=== PATIENT | female | born 1950 | race Hispanic/Latino ===

== ENCOUNTER 2021-04-23 14:18 | Inpatient (IN) | payer MEDICARE ==
[~2021-04-23] VITALS: Ht 152.4 cm; Wt 63.5 kg
[2021-04-23] MEDS ORDERED: SODIUM CHLORIDE 0.9% 1000ML 1,000 ML IV STA (14:54)
[2021-04-23 15:23] LABS: BASOPHILS # (AUTO) 0.1 (0.0-0.1); BASOPHILS % 0.6 % (0.0-1.0); EOSINOPHILS % 0.1 % (0.0-6.0); HEMATOCRIT 28.7 % (34.2-44.1); HEMOGLOBIN 9.5 g/dL (12.0-16.0); LYMPHOCYTES # (AUTO) 1.3 (1.0-3.2); LYMPHOCYTES % 14.7 % (18.0-39.1); MEAN CORPUSCULAR HEMOGLOBIN 28.5 pg (28-32); MEAN CORPUSCULAR HGB CONC 33.1 g/dL (31-35); MEAN CORPUSCULAR VOLUME 86.2 fL (81-99); MONOCYTES # (AUTO) 1.3 (0.2-0.8); MONOCYTES % 15.6 % (4.4-11.3); NEUTROPHILS # (AUTO) 5.8 (2.1-6.9); NEUTROPHILS % 68.1 % (38.7-80.0); PLATELET COUNT 468 x10e3/uL (140-360); RED BLOOD COUNT 3.33 x10e6/uL (3.6-5.1); RED CELL DISTRIBUTION WIDTH 11.9 % (11.7-14.4)
[2021-04-23 15:26] LABS: CLARITY,URINE SL CLOUDY (CLEAR); COLOR,URINE YELLOW (YELLOW)
[2021-04-23 15:27] LABS: KETONES,URINE NEGATIVE (NEGATIVE); LEUKOCYTE ESTERASE ,URINE NEGATIVE (NEGATIVE); NITRITE,URINE NEGATIVE (NEGATIVE); PROTEIN,URINE DIPSTICK >=300 (NEGATIVE); URINE UROBILINOGEN 0.2 mg/dL (0.2 - 1)
[2021-04-23 15:36] LABS: AMORPHOUS SEDIMENT,URINE MODERATE (FEW); BACTERIA,URINE FEW /HPF; EPITHELIAL CELLS,URINE MODERATE /LPF; RBC,URINE 0-5 /HPF (0-5)
[2021-04-23 15:43] LABS: ALBUMIN 3.4 g/dL (3.5-5.0); ALBUMIN/GLOBULIN RATIO 0.8 (0.8-2.0); ANION GAP 18.3 mmol/L (8-16); CALCIUM 8.4 mg/dL (8.4-10.2); CREATININE, SERUM 3.13 mg/dL (0.57-1.11); POTASSIUM 3.3 mmol/L (3.5-5.1)
[2021-04-23 15:50] LABS: CREATINE KINASE MB 0.4 ng/mL (0-5.0)
[2021-04-23] MEDS: SODIUM CHLORIDE 0.9% 1000ML 1,000 ML IV SCH (18:52)
[2021-04-23 23:04] LABS: CREATINE KINASE MB 0.7 ng/mL (0-5.0)
[2021-04-24 06:31] LABS: BASOPHILS % 0.4 % (0.0-1.0); EOSINOPHILS % 0.1 % (0.0-6.0); HEMATOCRIT 27.2 % (34.2-44.1); HEMOGLOBIN 9.2 g/dL (12.0-16.0); LYMPHOCYTES # (AUTO) 1.2 (1.0-3.2); LYMPHOCYTES % 12.8 % (18.0-39.1); MEAN CORPUSCULAR HEMOGLOBIN 28.9 pg (28-32); MEAN CORPUSCULAR HGB CONC 33.8 g/dL (31-35); MEAN CORPUSCULAR VOLUME 85.5 fL (81-99); MONOCYTES # (AUTO) 1.1 (0.2-0.8); MONOCYTES % 11.4 % (4.4-11.3); NEUTROPHILS # (AUTO) 6.9 (2.1-6.9); NEUTROPHILS % 74.8 % (38.7-80.0); PLATELET COUNT 421 x10e3/uL (140-360); RED BLOOD COUNT 3.18 x10e6/uL (3.6-5.1); RED CELL DISTRIBUTION WIDTH 11.7 % (11.7-14.4)
[2021-04-24] MEDS: ACETAMINOPHEN 325 MG TAB PO PRN ×2 (06:45→12:00)
[2021-04-24] MEDS: SODIUM CHLORIDE 0.9% 1000ML 1,000 ML IV SCH ×3 (06:45→17:35)
[2021-04-24 06:57] LABS: ALBUMIN 3.1 g/dL (3.5-5.0); ALBUMIN/GLOBULIN RATIO 0.8 (0.8-2.0); ANION GAP 16.4 mmol/L (8-16); CALCIUM 8.1 mg/dL (8.4-10.2); CREATININE, SERUM 3.19 mg/dL (0.57-1.11); POTASSIUM 3.4 mmol/L (3.5-5.1)
[2021-04-24] MEDS ORDERED: ZOLPIDEM TARTRATE 5 MG TAB PO PRN (07:00)
[2021-04-24] MEDS ORDERED: DOCUSATE SODIUM 100 MG CAP PO PRN (07:00)
[2021-04-24] MEDS ORDERED: ONDANSETRON HCL INJ 2MG/ML 2ML 2 MG/ML VIAL IV PRN (07:00)
[2021-04-24 07:27] LABS: CHOL/HDL RATIO 4.9 (3.0-3.6)
[2021-04-24] MEDS: ZINC SULFATE 220 MG CAP PO SCH (11:00)
[2021-04-24] MEDS: ASCORBIC ACID 500 MG TAB PO SCH (11:00)
[2021-04-24 11:56] LABS: CREATINE KINASE MB 0.9 ng/mL (0-5.0)
[2021-04-24 17:28] VITALS: BP 158/56
[2021-04-24 17:45] VITALS: BP 158/56
[2021-04-24] MEDS ORDERED: DEXTROSE 50% SYRINGE 50 ML IV PRN (17:45)
[2021-04-24 17:48] VITALS: BP 158/56
[2021-04-24] MEDS ORDERED: BUMETANIDE1 MG PO (17:59)
[2021-04-24] MEDS ORDERED: NIFEDIPINE ER90 MG PO (17:59)
[2021-04-24] MEDS ORDERED: BUMETANIDE0.5 MG PO (17:59)
[2021-04-24] MEDS ORDERED: BENZONATATE100 MG PO (17:59)
[2021-04-24] MEDS ORDERED: ASPIRIN EC81 MG PO (17:59)
[2021-04-24] MEDS ORDERED: TOPIRAMATE25 MG PO (17:59)
[2021-04-24] MEDS ORDERED: LANTUS 3ML100 UNITS/ (17:59)
[2021-04-24] MEDS ORDERED: SODIUM BICARBO650 MG PO (17:59)
[2021-04-24] MEDS ORDERED: ATORVASTATIN CA40 MG PO (17:59)
[2021-04-24] MEDS ORDERED: CHLORTHALIDONE25 MG PO (17:59)
[2021-04-24] MEDS ORDERED: LACTULOSE SYRUP 20 GM/30 ML UDC PO NR (18:15)
[2021-04-24 20:30] VITALS: BP 158/56
[2021-04-24 20:31] VITALS: BP 158/56
[2021-04-24] MEDS: INSULIN REGULAR, HUMAN 100 UNIT/1 ML SQ SCH (21:20)
[2021-04-24] MEDS: INSULIN GLARGINE 100 UNITS/ML VIAL SQ SCH (21:23)
[2021-04-24] MEDS: HEPARIN SOD (PORCINE) 5,000 UNIT/ML VIAL SC SCH (22:44)
[2021-04-25] VITALS (14 sets, daily range): BP systolic 134–166; BP diastolic 43–82
[2021-04-25] MEDS: ACETAMINOPHEN 325 MG TAB PO PRN ×3 (00:55→23:15)
[2021-04-25] MEDS: NIFEDIPINE CR 30 MG TAB PO PRN (01:11)
[2021-04-25] MEDS: SODIUM CHLORIDE 0.9% 1000ML 1,000 ML IV SCH ×3 (03:45→17:36)
[2021-04-25 05:54] LABS: BASOPHILS % 0.3 % (0.0-1.0); HEMATOCRIT 28.5 % (34.2-44.1); HEMOGLOBIN 9.8 g/dL (12.0-16.0); LYMPHOCYTES # (AUTO) 1.5 (1.0-3.2); LYMPHOCYTES % 13.9 % (18.0-39.1); MEAN CORPUSCULAR HEMOGLOBIN 29.1 pg (28-32); MEAN CORPUSCULAR HGB CONC 34.4 g/dL (31-35); MEAN CORPUSCULAR VOLUME 84.6 fL (81-99); MONOCYTES # (AUTO) 0.9 (0.2-0.8); MONOCYTES % 8.1 % (4.4-11.3); NEUTROPHILS # (AUTO) 8.5 (2.1-6.9); NEUTROPHILS % 77.1 % (38.7-80.0); PLATELET COUNT 397 x10e3/uL (140-360); RED BLOOD COUNT 3.37 x10e6/uL (3.6-5.1); RED CELL DISTRIBUTION WIDTH 11.6 % (11.7-14.4)
[2021-04-25] MEDS: INSULIN REGULAR, HUMAN 100 UNIT/1 ML SQ SCH ×4 (07:30→21:00)
[2021-04-25 08:10] LABS: ANION GAP 17.1 mmol/L (8-16); CALCIUM 7.8 mg/dL (8.4-10.2); CREATININE, SERUM 2.44 mg/dL (0.57-1.11); POTASSIUM 3.1 mmol/L (3.5-5.1)
[2021-04-25] MEDS: CHOLECALCIFEROL 400 UNIT TAB PO SCH (10:07)
[2021-04-25] MEDS: CEFTRIAXONE 1 GM in SODIUM CHLORIDE 0.9% 50ML 50 ML IV SCH (10:07)
[2021-04-25] MEDS: LABETALOL HCL 100 MG TAB PO SCH ×2 (10:07→21:00)
[2021-04-25] MEDS: MULTIVITAMINS/MINERALS TAB PO SCH (10:07)
[2021-04-25] MEDS: HEPARIN SOD (PORCINE) 5,000 UNIT/ML VIAL SC SCH ×2 (10:09→21:00)
[2021-04-25 13:52] LABS: BAND NEUTROPHILS % (MANUAL) 4 %; LYMPHOCYTES % (MANUAL) 12 % (19-48); MONOCYTES % (MANUAL) 3 % (3.4-9.0); NEUTROPHILS % (MANUAL) 81 % (40-74)
[2021-04-25 13:53] LABS: PLATELET ESTIMATE SLIGHTLY INCREASED; PLATELET MORPHOLOGY COMMENT NORMAL; RBC MORPHOLOGY COMMENT NORMAL
[2021-04-25] MEDS: INSULIN GLARGINE 100 UNITS/ML VIAL SQ SCH (21:00)
[2021-04-26] VITALS (7 sets, daily range): BP systolic 105–180; BP diastolic 55–74
[2021-04-26] MEDS: SODIUM CHLORIDE 0.9% 1000ML 1,000 ML IV SCH ×2 (01:30→08:27)
[2021-04-26] MEDS: SODIUM BICARBONATE 8.4% 75 ML in SODIUM CHLORIDE 0.45% 1,000 ML IV SCH ×2 (02:00→15:02)
[2021-04-26] MEDS: ACETAMINOPHEN 325 MG TAB PO PRN (05:15)
[2021-04-26] MEDS: INSULIN REGULAR, HUMAN 100 UNIT/1 ML SQ SCH ×4 (07:30→21:15)
[2021-04-26] MEDS: MULTIVITAMINS/MINERALS TAB PO SCH (08:25)
[2021-04-26] MEDS: CEFTRIAXONE 1 GM in SODIUM CHLORIDE 0.9% 50ML 50 ML IV SCH (08:25)
[2021-04-26] MEDS: LABETALOL HCL 100 MG TAB PO SCH ×2 (08:26→21:25)
[2021-04-26] MEDS: CHOLECALCIFEROL 400 UNIT TAB PO SCH (08:26)
[2021-04-26] MEDS: ASCORBIC ACID 500 MG TAB PO SCH (08:26)
[2021-04-26] MEDS: ZINC SULFATE 220 MG CAP PO SCH (08:26)
[2021-04-26] MEDS: HEPARIN SOD (PORCINE) 5,000 UNIT/ML VIAL SC SCH ×2 (08:27→21:38)
[2021-04-26] MEDS ORDERED: REMDESIVIR 200MG 200 MG in SODIUM CHLORIDE 0.9% 100 ML 100 ML IV ONE (10:00)
[2021-04-26 10:09] LABS: ANION GAP 13.8 mmol/L (8-16); CALCIUM 7.3 mg/dL (8.4-10.2); CREATININE, SERUM 2.19 mg/dL (0.57-1.11)
[2021-04-26 10:26] LABS: POTASSIUM 2.8 mmol/L (3.5-5.1)
[2021-04-26] MEDS ORDERED: POTASSIUM CHLORIDE 20MEQ/100ML 300 ML IV ONE (13:00)
[2021-04-26] MEDS: PIPERACILLIN/TAZOBACTAM 2.25 GM in SODIUM CHLORIDE 0.9% 50ML 50 ML IV SCH ×2 (13:12→21:38)
[2021-04-26] MEDS: DEXAMETHASONE SOD PHOS 10 MG/1 ML VIAL IV SCH (13:12)
[2021-04-26] MEDS ORDERED: POTASSIUM CHLORIDE 10MEQ EA PO ONE (13:15)
[2021-04-26] MEDS: POTASSIUM CHLORIDE 10MEQ EA PO SCH ×2 (15:00→21:25)
[2021-04-26] MEDS: NIFEDIPINE CR 30 MG TAB PO PRN (18:20)
[2021-04-26] MEDS: INSULIN GLARGINE 100 UNITS/ML VIAL SQ SCH (21:15)
[2021-04-27] VITALS (10 sets, daily range): BP systolic 111–129; BP diastolic 47–70
[2021-04-27 06:31] LABS: HEMATOCRIT 25.3 % (34.2-44.1); HEMOGLOBIN 8.5 g/dL (12.0-16.0); LYMPHOCYTES # (AUTO) 0.7 (1.0-3.2); LYMPHOCYTES % 12.5 % (18.0-39.1); MEAN CORPUSCULAR HEMOGLOBIN 28.5 pg (28-32); MEAN CORPUSCULAR HGB CONC 33.6 g/dL (31-35); MEAN CORPUSCULAR VOLUME 84.9 fL (81-99); MONOCYTES # (AUTO) 0.4 (0.2-0.8); MONOCYTES % 6.6 % (4.4-11.3); NEUTROPHILS # (AUTO) 4.8 (2.1-6.9); NEUTROPHILS % 80.2 % (38.7-80.0); PLATELET COUNT 309 x10e3/uL (140-360); RED BLOOD COUNT 2.98 x10e6/uL (3.6-5.1); RED CELL DISTRIBUTION WIDTH 12.2 % (11.7-14.4)
[2021-04-27 06:56] LABS: ALBUMIN 1.9 g/dL (3.5-5.0); ALBUMIN/GLOBULIN RATIO 0.5 (0.8-2.0); ANION GAP 14.2 mmol/L (8-16); CALCIUM 7.8 mg/dL (8.4-10.2); CREATININE, SERUM 2.48 mg/dL (0.57-1.11); MAGNESIUM 1.5 MG/DL (1.3-2.1); PHOSPHORUS 3.5 MG/DL (2.3-4.7); POTASSIUM 4.2 mmol/L (3.5-5.1)
[2021-04-27] MEDS: INSULIN REGULAR, HUMAN 100 UNIT/1 ML SQ SCH ×4 (08:59→21:13)
[2021-04-27] MEDS: MULTIVITAMINS/MINERALS TAB PO SCH (09:00)
[2021-04-27] MEDS: CHOLECALCIFEROL 400 UNIT TAB PO SCH (09:00)
[2021-04-27] MEDS: DEXAMETHASONE SOD PHOS 10 MG/1 ML VIAL IV SCH (09:00)
[2021-04-27] MEDS: LABETALOL HCL 100 MG TAB PO SCH ×2 (09:00→22:06)
[2021-04-27] MEDS: ZINC SULFATE 220 MG CAP PO SCH (09:00)
[2021-04-27] MEDS: ASCORBIC ACID 500 MG TAB PO SCH (09:00)
[2021-04-27] MEDS: PIPERACILLIN/TAZOBACTAM 2.25 GM in SODIUM CHLORIDE 0.9% 50ML 50 ML IV SCH ×2 (09:04→21:27)
[2021-04-27] MEDS: HEPARIN SOD (PORCINE) 5,000 UNIT/ML VIAL SC SCH ×2 (09:32→21:14)
[2021-04-27] MEDS: SODIUM BICARBONATE 8.4% 75 ML in SODIUM CHLORIDE 0.45% 1,000 ML IV SCH ×2 (11:08→18:15)
[2021-04-27] MEDS ORDERED: REMDESIVIR 100MG 100 MG in SODIUM CHLORIDE 0.9% 100 ML IV SCH (14:00)
[2021-04-27] MEDS: INSULIN GLARGINE 100 UNITS/ML VIAL SQ SCH (21:14)
[2021-04-28] VITALS (11 sets, daily range): BP systolic 127–152; BP diastolic 44–61
[2021-04-28 05:49] LABS: ANION GAP 15.5 mmol/L (8-16); CALCIUM 7.5 mg/dL (8.4-10.2); CREATININE, SERUM 2.86 mg/dL (0.57-1.11); MAGNESIUM 1.5 MG/DL (1.3-2.1); PHOSPHORUS 3.7 MG/DL (2.3-4.7); POTASSIUM 3.5 mmol/L (3.5-5.1)
[2021-04-28] MEDS: INSULIN REGULAR, HUMAN 100 UNIT/1 ML SQ SCH ×4 (07:30→20:54)
[2021-04-28] MEDS: SODIUM BICARBONATE 8.4% 75 ML in SODIUM CHLORIDE 0.45% 1,000 ML IV SCH (07:51)
[2021-04-28] MEDS: DEXAMETHASONE SOD PHOS 10 MG/1 ML VIAL IV SCH (09:36)
[2021-04-28] MEDS: MULTIVITAMINS/MINERALS TAB PO SCH (09:36)
[2021-04-28] MEDS: ZINC SULFATE 220 MG CAP PO SCH (09:37)
[2021-04-28] MEDS: HEPARIN SOD (PORCINE) 5,000 UNIT/ML VIAL SC SCH ×2 (09:37→20:53)
[2021-04-28] MEDS: LABETALOL HCL 100 MG TAB PO SCH ×2 (09:37→21:34)
[2021-04-28] MEDS: CHOLECALCIFEROL 400 UNIT TAB PO SCH (09:37)
[2021-04-28] MEDS: PIPERACILLIN/TAZOBACTAM 2.25 GM in SODIUM CHLORIDE 0.9% 50ML 50 ML IV SCH ×2 (09:37→21:27)
[2021-04-28] MEDS: ASCORBIC ACID 500 MG TAB PO SCH (09:37)
[2021-04-28] MEDS: INSULIN GLARGINE 100 UNITS/ML VIAL SQ SCH (20:55)
[2021-04-28] MEDS: ACETAMINOPHEN 325 MG TAB PO PRN (21:38)
[2021-04-29] VITALS (10 sets, daily range): BP systolic 138–175; BP diastolic 37–61
[2021-04-29] MEDS: SODIUM BICARBONATE 8.4% 75 ML in SODIUM CHLORIDE 0.45% 1,000 ML IV SCH ×2 (03:59→13:15)
[2021-04-29 06:44] LABS: ANION GAP 16.7 mmol/L (8-16); CALCIUM 7.5 mg/dL (8.4-10.2); CREATININE, SERUM 2.77 mg/dL (0.57-1.11); MAGNESIUM 1.6 MG/DL (1.3-2.1); PHOSPHORUS 3.9 MG/DL (2.3-4.7); POTASSIUM 3.7 mmol/L (3.5-5.1)
[2021-04-29] MEDS: CHOLECALCIFEROL 400 UNIT TAB PO SCH (08:26)
[2021-04-29] MEDS: MULTIVITAMINS/MINERALS TAB PO SCH (08:26)
[2021-04-29] MEDS: LABETALOL HCL 100 MG TAB PO SCH ×2 (08:26→20:47)
[2021-04-29] MEDS: DEXAMETHASONE SOD PHOS 10 MG/1 ML VIAL IV SCH (08:26)
[2021-04-29] MEDS: ASCORBIC ACID 500 MG TAB PO SCH (08:26)
[2021-04-29] MEDS: ZINC SULFATE 220 MG CAP PO SCH (08:27)
[2021-04-29] MEDS: HEPARIN SOD (PORCINE) 5,000 UNIT/ML VIAL SC SCH ×2 (08:27→20:28)
[2021-04-29] MEDS: INSULIN REGULAR, HUMAN 100 UNIT/1 ML SQ SCH ×4 (08:32→20:29)
[2021-04-29] MEDS: PIPERACILLIN/TAZOBACTAM 2.25 GM in SODIUM CHLORIDE 0.9% 50ML 50 ML IV SCH (08:35)
[2021-04-29] MEDS: SODIUM BICARBONATE 650 MG TAB PO SCH (17:00)
[2021-04-29] MEDS: NIFEDIPINE CR 30 MG TAB PO PRN (19:00)
[2021-04-29] MEDS: INSULIN GLARGINE 100 UNITS/ML VIAL SQ SCH (20:29)
[2021-04-30] VITALS (8 sets, daily range): BP systolic 113–140; BP diastolic 42–56
[2021-04-30 07:11] LABS: BASOPHILS % 0.1 % (0.0-1.0); HEMATOCRIT 27.2 % (34.2-44.1); LYMPHOCYTES # (AUTO) 1.1 (1.0-3.2); LYMPHOCYTES % 14.3 % (18.0-39.1); MEAN CORPUSCULAR HEMOGLOBIN 28.3 pg (28-32); MEAN CORPUSCULAR HGB CONC 33.1 g/dL (31-35); MEAN CORPUSCULAR VOLUME 85.5 fL (81-99); MONOCYTES # (AUTO) 0.8 (0.2-0.8); MONOCYTES % 10.1 % (4.4-11.3); NEUTROPHILS # (AUTO) 5.4 (2.1-6.9); NEUTROPHILS % 73.5 % (38.7-80.0); PLATELET COUNT 323 x10e3/uL (140-360); RED BLOOD COUNT 3.18 x10e6/uL (3.6-5.1); RED CELL DISTRIBUTION WIDTH 12.1 % (11.7-14.4)
[2021-04-30 07:28] LABS: ANION GAP 14.7 mmol/L (8-16); CALCIUM 7.5 mg/dL (8.4-10.2); CREATININE, SERUM 2.56 mg/dL (0.57-1.11); POTASSIUM 3.7 mmol/L (3.5-5.1)
[2021-04-30] MEDS: INSULIN REGULAR, HUMAN 100 UNIT/1 ML SQ SCH ×4 (09:00→20:45)
[2021-04-30] MEDS: CHOLECALCIFEROL 400 UNIT TAB PO SCH (09:37)
[2021-04-30] MEDS: SODIUM BICARBONATE 650 MG TAB PO SCH ×2 (09:37→16:39)
[2021-04-30] MEDS: DEXAMETHASONE SOD PHOS 10 MG/1 ML VIAL IV SCH (09:37)
[2021-04-30] MEDS: ASCORBIC ACID 500 MG TAB PO SCH (09:38)
[2021-04-30] MEDS: ZINC SULFATE 220 MG CAP PO SCH (09:38)
[2021-04-30] MEDS: MULTIVITAMINS/MINERALS TAB PO SCH (09:39)
[2021-04-30] MEDS: LABETALOL HCL 100 MG TAB PO SCH ×2 (09:39→20:47)
[2021-04-30] MEDS: HEPARIN SOD (PORCINE) 5,000 UNIT/ML VIAL SC SCH ×2 (10:38→20:46)
[2021-04-30] MEDS: INSULIN GLARGINE 100 UNITS/ML VIAL SQ SCH (20:45)
[2021-05-01] VITALS: BP 149/59
[2021-05-01 04:00] VITALS: BP 157/55
[2021-05-01 04:53] LABS: BASOPHILS % 0.1 % (0.0-1.0); HEMOGLOBIN 8.6 g/dL (12.0-16.0); LYMPHOCYTES # (AUTO) 1.1 (1.0-3.2); LYMPHOCYTES % 15.9 % (18.0-39.1); MEAN CORPUSCULAR HGB CONC 34.4 g/dL (31-35); MEAN CORPUSCULAR VOLUME 84.2 fL (81-99); MONOCYTES # (AUTO) 0.8 (0.2-0.8); MONOCYTES % 11.4 % (4.4-11.3); NEUTROPHILS # (AUTO) 4.9 (2.1-6.9); NEUTROPHILS % 68.7 % (38.7-80.0); PLATELET COUNT 279 x10e3/uL (140-360); RED BLOOD COUNT 2.97 x10e6/uL (3.6-5.1); RED CELL DISTRIBUTION WIDTH 11.9 % (11.7-14.4)
[2021-05-01 05:24] LABS: ANION GAP 14.4 mmol/L (8-16); CALCIUM 7.5 mg/dL (8.4-10.2); CREATININE, SERUM 2.66 mg/dL (0.57-1.11); MAGNESIUM 1.7 MG/DL (1.3-2.1); PHOSPHORUS 3.3 MG/DL (2.3-4.7); POTASSIUM 3.4 mmol/L (3.5-5.1)
[2021-05-01 09:00] VITALS: BP 177/56
[2021-05-01] MEDS: ASCORBIC ACID 500 MG TAB PO SCH (09:00)
[2021-05-01] MEDS: MULTIVITAMINS/MINERALS TAB PO SCH (09:13)
[2021-05-01] MEDS: DEXAMETHASONE SOD PHOS 10 MG/1 ML VIAL IV SCH (09:13)
[2021-05-01] MEDS: CHOLECALCIFEROL 400 UNIT TAB PO SCH (09:14)
[2021-05-01] MEDS: LABETALOL HCL 100 MG TAB PO SCH (09:14)
[2021-05-01] MEDS: ZINC SULFATE 220 MG CAP PO SCH (09:15)
[2021-05-01 09:37] VITALS: BP 177/56
[2021-05-01] MEDS: HEPARIN SOD (PORCINE) 5,000 UNIT/ML VIAL SC SCH (09:37)
[2021-05-01] MEDS: INSULIN REGULAR, HUMAN 100 UNIT/1 ML SQ SCH (09:37)
[2021-05-01] MEDS ORDERED: SODIUM BICARBONATE 650 MG TAB PO SCH (10:00)
[2021-05-01] MEDS ORDERED: CALCIUM GLUCONATE 10% INJ 9.3 MEQ in SODIUM CHLORIDE 0.9% 100 ML 100 ML IV ONE (10:00)
[2021-05-01] MEDS ORDERED: POTASSIUM CHLORIDE 20 MEQ TAB CR PO ONE ×2 (10:05→11:30)
[2021-05-01] MEDS ORDERED: NIFEDIPINE CR 30 MG TAB PO PRN (10:45)
[2021-05-01] MEDS ORDERED: PREDNISONE20 MG PO (12:46)
[2021-05-01] MEDS ORDERED: ZINC SULFATE50 MG PO (12:46)
[2021-05-01] MEDS ORDERED: ASCORBIC ACID500 MG PO (12:46)
[2021-05-01 13:05] VITALS: BP 185/66
[2021-05-01] MEDS ORDERED: LABETALOL HCL 100 MG TAB PO SCH (21:00)
== END 2021-05-01 15:05 | disposition home or self-care (01) | DRG 871 ==
LOC: ER 14:59 → ERHOLD 17:09 → EDBD 17:09 → ERHOLD 04-24 02:05 → IMCU 04-24 16:17 → OBSVTOIN 04-25 12:32
PROVIDERS: ADMIT Internal Medicine; ATTEND Internal Medicine
PROC: 8E0ZXY6 Isolation (ICD-10-PCS; 2021-04-25)
PROC: XW033E5 Introduction of Remdesivir Anti-infective into Peripheral Vein, Percutaneous Approach, New Technology Group 5 (ICD-10-PCS; principal; 2021-04-26)
DX: A41.89 Other specified sepsis (principal); U07.1 COVID-19; J12.82 Pneumonia due to coronavirus disease 2019; J15.9 Unspecified bacterial pneumonia; J96.00 Acute respiratory failure, unspecified whether with hypoxia or hypercapnia; N17.9 Acute kidney failure, unspecified; N18.4 Chronic kidney disease, stage 4 (severe); A08.39 Other viral enteritis; E87.2 Acidosis; E66.3 Overweight; Z68.27 Body mass index [BMI] 27.0-27.9, adult; E78.5 Hyperlipidemia, unspecified; E11.22 Type 2 diabetes mellitus with diabetic chronic kidney disease; I12.9 Hypertensive chronic kidney disease with stage 1 through stage 4 chronic kidney disease, or unspecified chronic kidney disease; E87.6 Hypokalemia; R06.03 Acute respiratory distress
CPT/HCPCS: 36415; 71045; 76770; 80048; 80053; 80061; 81001; 82550; 82553; 82728; 82948; 83036; 83735; 84100; 84484; 85025; 85379; 86140; 87040; 87493; 93005; 96361; 96372; 99284; G0378; J0456; J0610; J0696; J1100; J1644; J1815; J1817; J2405; J2543; J3480; J7030; J7050; U0002

== ENCOUNTER 2021-09-23 11:46 | Inpatient (IN) | payer MEDICARE ==
[~2021-09-23] VITALS: Ht 154.9 cm; Wt 66.2 kg
[~2021-09-23 11:46] MED LIST: ASCORBIC ACID500 MG PO; ASPIRIN EC81 MG PO; ATORVASTATIN CA40 MG PO; BENZONATATE100 MG PO; BUMETANIDE0.5 MG PO; BUMETANIDE1 MG PO; CHLORTHALIDONE25 MG PO; LANTUS 3ML100 UNITS/; NIFEDIPINE ER90 MG PO; PREDNISONE20 MG PO; SODIUM BICARBO650 MG PO; TOPIRAMATE25 MG PO; ZINC SULFATE50 MG PO
[2021-09-23] MEDS ORDERED: ASPIRIN 81 MG CHEW TAB PO STA (12:09)
[2021-09-23 12:27] LABS: BASOPHILS # (AUTO) 0.1 (0.0-0.1); BASOPHILS % 1.2 % (0.0-1.0); EOSINOPHILS # (AUTO) 0.6 (0.0-0.4); EOSINOPHILS % 6.6 % (0.0-6.0); HEMOGLOBIN 8.2 g/dL (12.0-16.0); LYMPHOCYTES % 23.4 % (18.0-39.1); MEAN CORPUSCULAR HEMOGLOBIN 26.2 pg (28-32); MEAN CORPUSCULAR HGB CONC 30.4 g/dL (31-35); MEAN CORPUSCULAR VOLUME 86.3 fL (81-99); MONOCYTES # (AUTO) 0.8 (0.2-0.8); MONOCYTES % 9.4 % (4.4-11.3); NEUTROPHILS % 59.2 % (38.7-80.0); PLATELET COUNT 211 x10e3/uL (140-360); RED BLOOD COUNT 3.13 x10e6/uL (3.6-5.1); RED CELL DISTRIBUTION WIDTH 14.8 % (11.7-14.4)
[2021-09-23 12:34] LABS: INR 1.1
[2021-09-23 12:35] LABS: PARTIAL THROMBOPLASTIN TIME 33.8 seconds (23.8-35.5)
[2021-09-23 12:46] LABS: ALBUMIN 3.2 g/dL (3.5-5.0); ALBUMIN/GLOBULIN RATIO 0.9 (0.8-2.0); ANION GAP 15.1 mmol/L (8-16); CALCIUM 8.2 mg/dL (8.4-10.2); CREATININE, SERUM 3.64 mg/dL (0.57-1.11); POTASSIUM 4.1 mmol/L (3.5-5.1)
[2021-09-23 12:54] LABS: CREATINE KINASE MB 1.6 ng/mL (0-5.0)
[2021-09-23] MEDS ORDERED: FUROSEMIDE INJ 10 MG/ML 4 ML VIAL IV ONE (15:00)
[2021-09-23] MEDS: CEFTRIAXONE 1 GM in SODIUM CHLORIDE 0.9% 50ML 50 ML IV SCH (15:12)
[2021-09-23] MEDS ORDERED: ONDANSETRON HCL INJ 2MG/ML 2ML 2 MG/ML VIAL IV PRN (15:15)
[2021-09-23 17:27] VITALS: BP 164/57
[2021-09-23 17:30] VITALS: BP 164/57
[2021-09-23] MEDS ORDERED: CARVEDILOL12.5 MG PO (18:16)
[2021-09-23] MEDS ORDERED: ALLOPURINOL100 MG PO (18:16)
[2021-09-23] MEDS ORDERED: LATANOPROST2.5 ML OP (18:16)
[2021-09-23] MEDS ORDERED: BUMETANIDE1 MG PO (18:16)
[2021-09-23] MEDS ORDERED: GABAPENTIN100 MG PO (18:16)
[2021-09-23 19:14] LABS: CREATINE KINASE MB 1.9 ng/mL (0-5.0)
[2021-09-23 20:00] VITALS: BP 178/65
[2021-09-23 20:01] VITALS: BP 178/65
[2021-09-23] MEDS: FUROSEMIDE INJ 10 MG/ML 4 ML VIAL IV SCH (20:40)
[2021-09-23] MEDS: METOPROLOL TARTRATE INJ 1 MG/ML VIAL IV PRN (20:41)
[2021-09-23] MEDS: SODIUM BICARBONATE 650 MG TAB PO SCH (20:41)
[2021-09-23] MEDS: LATANOPROST(OPTH) 2.5 ML BTL OP SCH (20:41)
[2021-09-24] VITALS (9 sets, daily range): BP systolic 135–191; BP diastolic 47–73
[2021-09-24] MEDS: METOPROLOL TARTRATE INJ 1 MG/ML VIAL IV PRN ×2 (05:28→12:14)
[2021-09-24 06:14] LABS: BASOPHILS # (AUTO) 0.1 (0.0-0.1); BASOPHILS % 1.1 % (0.0-1.0); EOSINOPHILS # (AUTO) 0.5 (0.0-0.4); EOSINOPHILS % 8.8 % (0.0-6.0); HEMATOCRIT 27.5 % (34.2-44.1); HEMOGLOBIN 8.3 g/dL (12.0-16.0); LYMPHOCYTES # (AUTO) 1.4 (1.0-3.2); LYMPHOCYTES % 23.5 % (18.0-39.1); MEAN CORPUSCULAR HEMOGLOBIN 26.4 pg (28-32); MEAN CORPUSCULAR HGB CONC 30.2 g/dL (31-35); MEAN CORPUSCULAR VOLUME 87.6 fL (81-99); MONOCYTES # (AUTO) 0.6 (0.2-0.8); MONOCYTES % 9.6 % (4.4-11.3); NEUTROPHILS # (AUTO) 3.5 (2.1-6.9); NEUTROPHILS % 56.5 % (38.7-80.0); PLATELET COUNT 193 x10e3/uL (140-360); RED BLOOD COUNT 3.14 x10e6/uL (3.6-5.1); RED CELL DISTRIBUTION WIDTH 14.8 % (11.7-14.4)
[2021-09-24] MEDS ORDERED: DOCUSATE SODIUM 100 MG CAP PO PRN (06:30)
[2021-09-24] MEDS ORDERED: DEXTROSE 50% SYRINGE 50 ML IV PRN (06:30)
[2021-09-24 06:36] LABS: ALBUMIN 2.9 g/dL (3.5-5.0); ALBUMIN/GLOBULIN RATIO 0.9 (0.8-2.0); CALCIUM 8.3 mg/dL (8.4-10.2); CHOL/HDL RATIO 2.5 (3.0-3.6); CREATININE, SERUM 3.35 mg/dL (0.57-1.11)
[2021-09-24 07:12] LABS: CREATINE KINASE MB 1.8 ng/mL (0-5.0)
[2021-09-24 07:28] LABS: CHOL/HDL RATIO 2.5 (3.0-3.6)
[2021-09-24] MEDS: INSULIN REGULAR, HUMAN 100 UNIT/1 ML SQ SCH ×4 (07:30→20:46)
[2021-09-24] MEDS ORDERED: ONDANSETRON HCL 4 MG ORAL DISINTEGRATING TAB PO PRN (08:30)
[2021-09-24] MEDS: FUROSEMIDE INJ 10 MG/ML 4 ML VIAL IV SCH ×3 (08:56→21:02)
[2021-09-24] MEDS: NIFEDIPINE CR 30 MG TAB PO SCH (08:56)
[2021-09-24] MEDS: ATORVASTATIN 40 MG TAB PO SCH (08:56)
[2021-09-24] MEDS: ASPIRIN 81 MG ENTERIC COATED PO SCH (08:56)
[2021-09-24] MEDS: ALLOPURINOL 100 MG TAB PO SCH (08:57)
[2021-09-24] MEDS: TOPIRAMATE 25 MG TAB PO SCH (08:57)
[2021-09-24] MEDS: SODIUM BICARBONATE 650 MG TAB PO SCH ×3 (08:57→20:57)
[2021-09-24] MEDS ORDERED: CARVEDILOL 12.5 MG TAB PO SCH (09:00)
[2021-09-24] MEDS: CEFTRIAXONE 1 GM in SODIUM CHLORIDE 0.9% 50ML 50 ML IV SCH (16:03)
[2021-09-24] MEDS: AZITHROMYCIN 250 MG TAB PO SCH (16:04)
[2021-09-24] MEDS: CARVEDILOL 12.5 MG TAB PO SCH (16:52)
[2021-09-24] MEDS: LATANOPROST(OPTH) 2.5 ML BTL OP SCH (20:57)
[2021-09-25] VITALS (10 sets, daily range): BP systolic 125–171; BP diastolic 40–59
[2021-09-25] MEDS: METOPROLOL TARTRATE INJ 1 MG/ML VIAL IV PRN (04:20)
[2021-09-25] MEDS: FUROSEMIDE INJ 10 MG/ML 4 ML VIAL IV SCH ×3 (05:45→21:56)
[2021-09-25 06:08] LABS: BASOPHILS # (AUTO) 0.1 (0.0-0.1); BASOPHILS % 1.4 % (0.0-1.0); EOSINOPHILS # (AUTO) 0.5 (0.0-0.4); HEMATOCRIT 26.9 % (34.2-44.1); HEMOGLOBIN 8.1 g/dL (12.0-16.0); LYMPHOCYTES # (AUTO) 1.8 (1.0-3.2); LYMPHOCYTES % 27.1 % (18.0-39.1); MEAN CORPUSCULAR HEMOGLOBIN 25.7 pg (28-32); MEAN CORPUSCULAR HGB CONC 30.1 g/dL (31-35); MEAN CORPUSCULAR VOLUME 85.4 fL (81-99); MONOCYTES # (AUTO) 0.5 (0.2-0.8); MONOCYTES % 7.9 % (4.4-11.3); NEUTROPHILS # (AUTO) 3.6 (2.1-6.9); NEUTROPHILS % 56.4 % (38.7-80.0); PLATELET COUNT 191 x10e3/uL (140-360); RED BLOOD COUNT 3.15 x10e6/uL (3.6-5.1); RED CELL DISTRIBUTION WIDTH 14.7 % (11.7-14.4)
[2021-09-25 06:36] LABS: ALBUMIN 2.8 g/dL (3.5-5.0); ALBUMIN/GLOBULIN RATIO 0.9 (0.8-2.0); ANION GAP 13.7 mmol/L (8-16); CALCIUM 8.2 mg/dL (8.4-10.2); CREATININE, SERUM 3.3 mg/dL (0.57-1.11); MAGNESIUM 1.5 MG/DL (1.3-2.1); PHOSPHORUS 4.3 MG/DL (2.3-4.7); POTASSIUM 3.7 mmol/L (3.5-5.1)
[2021-09-25] MEDS: INSULIN REGULAR, HUMAN 100 UNIT/1 ML SQ SCH ×4 (07:26→21:55)
[2021-09-25] MEDS: ASPIRIN 81 MG ENTERIC COATED PO SCH (09:10)
[2021-09-25] MEDS: TOPIRAMATE 25 MG TAB PO SCH (09:11)
[2021-09-25] MEDS: NIFEDIPINE CR 30 MG TAB PO SCH (09:11)
[2021-09-25] MEDS: ATORVASTATIN 40 MG TAB PO SCH (09:11)
[2021-09-25] MEDS: CARVEDILOL 12.5 MG TAB PO SCH ×2 (09:11→16:54)
[2021-09-25] MEDS: ALLOPURINOL 100 MG TAB PO SCH (09:11)
[2021-09-25] MEDS: SODIUM BICARBONATE 650 MG TAB PO SCH ×3 (09:11→21:54)
[2021-09-25] MEDS: CEFTRIAXONE 1 GM in SODIUM CHLORIDE 0.9% 50ML 50 ML IV SCH (15:06)
[2021-09-25] MEDS: AZITHROMYCIN 250 MG TAB PO SCH (15:06)
[2021-09-25] MEDS: LATANOPROST(OPTH) 2.5 ML BTL OP SCH (21:54)
[2021-09-26 05:02] LABS: BASOPHILS # (AUTO) 0.1 (0.0-0.1); BASOPHILS % 1.2 % (0.0-1.0); EOSINOPHILS # (AUTO) 0.5 (0.0-0.4); EOSINOPHILS % 6.5 % (0.0-6.0); HEMATOCRIT 26.9 % (34.2-44.1); HEMOGLOBIN 8.5 g/dL (12.0-16.0); LYMPHOCYTES # (AUTO) 1.9 (1.0-3.2); LYMPHOCYTES % 25.8 % (18.0-39.1); MEAN CORPUSCULAR HEMOGLOBIN 26.2 pg (28-32); MEAN CORPUSCULAR HGB CONC 31.6 g/dL (31-35); MEAN CORPUSCULAR VOLUME 82.8 fL (81-99); MONOCYTES # (AUTO) 0.7 (0.2-0.8); MONOCYTES % 9.1 % (4.4-11.3); NEUTROPHILS # (AUTO) 4.1 (2.1-6.9); NEUTROPHILS % 57.1 % (38.7-80.0); PLATELET COUNT 202 x10e3/uL (140-360); RED BLOOD COUNT 3.25 x10e6/uL (3.6-5.1); RED CELL DISTRIBUTION WIDTH 14.5 % (11.7-14.4)
[2021-09-26] MEDS: FUROSEMIDE INJ 10 MG/ML 4 ML VIAL IV SCH ×2 (05:24→14:00)
[2021-09-26 05:30] VITALS: BP 145/48
[2021-09-26 05:31] LABS: ALBUMIN 2.7 g/dL (3.5-5.0); ALBUMIN/GLOBULIN RATIO 0.8 (0.8-2.0); ANION GAP 13.3 mmol/L (8-16); CALCIUM 8.3 mg/dL (8.4-10.2); CREATININE, SERUM 3.18 mg/dL (0.57-1.11); MAGNESIUM 1.4 MG/DL (1.3-2.1); PHOSPHORUS 4.4 MG/DL (2.3-4.7); POTASSIUM 3.3 mmol/L (3.5-5.1)
[2021-09-26] MEDS: INSULIN REGULAR, HUMAN 100 UNIT/1 ML SQ SCH ×2 (07:30→11:30)
[2021-09-26 08:00] VITALS: BP 145/48
[2021-09-26 08:47] VITALS: BP 153/40
[2021-09-26] MEDS: ASPIRIN 81 MG ENTERIC COATED PO SCH (09:00)
[2021-09-26] MEDS: ATORVASTATIN 40 MG TAB PO SCH (09:00)
[2021-09-26] MEDS: SODIUM BICARBONATE 650 MG TAB PO SCH ×2 (09:00→15:00)
[2021-09-26] MEDS: NIFEDIPINE CR 30 MG TAB PO SCH (09:00)
[2021-09-26] MEDS: CARVEDILOL 12.5 MG TAB PO SCH (09:00)
[2021-09-26] MEDS: ALLOPURINOL 100 MG TAB PO SCH (09:00)
[2021-09-26] MEDS: TOPIRAMATE 25 MG TAB PO SCH (09:00)
[2021-09-26] MEDS ORDERED: CEPHALEXIN500 MG PO (09:15)
[2021-09-26] MEDS ORDERED: COREG12.5 MG PO (09:15)
[2021-09-26] MEDS ORDERED: K DUR10 MEQ PO (09:15)
[2021-09-26] MEDS ORDERED: FUROSEMIDE40 MG PO (09:15)
[2021-09-26] MEDS ORDERED: AZITHROMYCIN250 MG PO (09:15)
[2021-09-26] MEDS ORDERED: POTASSIUM CHLORIDE 20 MEQ TAB CR PO ONE (10:30)
[2021-09-26 11:55] VITALS: BP 114/34
[2021-09-26] MEDS: CEFTRIAXONE 1 GM in SODIUM CHLORIDE 0.9% 50ML 50 ML IV SCH (15:00)
== END 2021-09-26 15:10 | disposition home or self-care (01) | DRG 291 ==
LOC: EDBD 11:46 → ER 12:06 → ERHOLD 15:05 → MED/SURG2 17:23
PROVIDERS: ADMIT Internal Medicine; ATTEND Internal Medicine
DX: I13.2 Hypertensive heart and chronic kidney disease with heart failure and with stage 5 chronic kidney disease, or end stage renal disease (principal); J18.9 Pneumonia, unspecified organism; I50.33 Acute on chronic diastolic (congestive) heart failure; N18.5 Chronic kidney disease, stage 5; E87.2 Acidosis; N17.9 Acute kidney failure, unspecified; M10.9 Gout, unspecified; E11.22 Type 2 diabetes mellitus with diabetic chronic kidney disease; Z86.16 Personal history of COVID-19; Z20.822 Contact with and (suspected) exposure to COVID-19; E78.5 Hyperlipidemia, unspecified; D63.1 Anemia in chronic kidney disease
CPT/HCPCS: 36415; 71045; 80053; 80061; 82550; 82553; 82948; 83036; 83735; 83880; 84100; 84484; 84550; 85025; 85610; 85730; 87040; 93005; 93306; 94799; 96372; 97139; 99251; 99284; J0456; J0696; J1817; J1940; J7050; U0002